=== PATIENT | female | born 1995 | race Caucasian/White ===

== ENCOUNTER 2019-01-06 19:54 | Emergency (ER) | payer SELFPAY ==
[~2019-01-06] VITALS: Ht 160 cm; Wt 54.4 kg
[~2019-01-06 19:54] MED LIST: CYCL5TAB PO; HYDR-3164 PO; IBUP800T19 PO
[2019-01-06 20:58] VITALS: BP 121/68
[2019-01-06] MEDS ORDERED: DOXY100C2 PO (22:17)
--- NOTE | 2019-01-06 22:17 | PHYS DOC ---
Past Medical History Past Medical History: No Pertinent History Past Surgical History: No Surgical History Additional Information: non smoker Alcohol Use: None Drug Use: None Adult General Chief Complaint Chief Complaint: INSECT BITE HPI HPI Patient is a 23 year old female who presents with a honey crusted spot on her nose that keeps recurring. The spot has been there two days and is tender. Has no associated symptoms. Tender is 5/10. No interventions prior to arrival. Review of Systems Review of Systems Constitutional: Denies fever or chills [] Eyes: Denies change in visual acuity, redness, or eye pain [] HENT: Denies nasal congestion or sore throat [] Respiratory: Denies cough or shortness of breath [] Cardiovascular: No additional information not addressed in HPI [] GI: Denies abdominal pain, nausea, vomiting, bloody stools or diarrhea [] : Denies dysuria or hematuria [] Musculoskeletal: Denies back pain or joint pain [] Integument: Denies rash but reports skin lesions [] Neurologic: Denies headache, focal weakness or sensory changes [] Endocrine: Denies polyuria or polydipsia [] Complete systems were reviewed and found to be within normal limits, except as documented in this note. Allergies Allergies Allergies Coded Allergies Type Severity Reaction Last Updated Verified No Known Drug Allergies 10/15/14 No Physical Exam Physical Exam Constitutional: Well developed, well nourished, no acute distress, non-toxic appearance. [] HENT: Normocephalic, atraumatic, bilateral external ears normal, oropharynx moist, no oral exudates, nose normal. [] Eyes: PERRLA, EOMI, conjunctiva normal, no discharge. [] Neck: Normal range of motion, no tenderness, supple, no stridor. [] Cardiovascular:Heart rate regular rhythm, no murmur [] Lungs & Thorax: Bilateral breath sounds clear to auscultation [] Abdomen: Bowel sounds normal, soft, no tenderness, no masses, no pulsatile masses. [] Skin: Warm, dry, no erythema, no rash with exception of three honey crusted lesions on nose. Back: No tenderness, no CVA tenderness. [] Extremities: No tenderness, no cyanosis, no clubbing, ROM intact, no edema. [] Neurologic: Alert and oriented X 3, normal motor function, normal sensory function, no focal deficits noted. [] Psychologic: Affect normal, judgement normal, mood normal. [] Current Patient Data Vital Signs Vital Signs Date Time Temp Pulse Resp B/P (MAP) Pulse Ox O2 Delivery O2 Flow Rate FiO2 01/06/19 20:58 98.2 81 18 121/68 (85) 100 Room Air 98.2 EKG EKG [] Radiology/Procedures Radiology/Procedures [] Course & Med Decision Making Course & Med Decision Making Pertinent Labs and Imaging studies reviewed. (See chart for details) []Appears to be impetigo. Will d/c home with doxycycline. Patient is agreeable. Dragon Disclaimer Tele[employer] Disclaimer This electronic medical record was generated, in whole or in part, using a voice recognition dictation system. Departure Departure Impression: Primary Impression: Impetigo Disposition: 01 HOME, SELF-CARE Condition: STABLE Referrals: NO PCP (PCP) Patient Instructions: Impetigo Additional Instructions: Please take all of antibiotics. Come back to ER as needed. Follow up with primary care doctor as needed. Scripts Doxycycline Hyclate (DOXYCYCLINE HYCLATE) 100 Mg Capsule 1 CAP PO BID for 7 Days, #14 CAP Prov: AYSE BALDERAS APRN 01/06/19 AYSE BALDERAS APRN January 06, 2019 22:17
== END 2019-01-06 22:37 | disposition home or self-care (01) ==
LOC: ER 19:54
DX: L01.00 Impetigo, unspecified (principal)
CPT/HCPCS: 99283